=== PATIENT | male | born 1970 | race Caucasian/White ===

== ENCOUNTER 2017-09-28 20:37 | Emergency (ER) | payer MEDICAID ==
[~2017-09-28] VITALS: Ht 182.9 cm; Wt 90.7 kg
[2017-09-28 21:06] VITALS: BP 155/75
[2017-09-28 21:10] VITALS: BP 155/75
--- NOTE | 2017-09-28 21:10 | NUR ---
RETURN BACK TO [facility] IN STABLE CONDITION, MACY NOTED.
--- NOTE | 2017-09-29 01:05 | NUR ---
PATIENT CALLED TO PUT ON BED, NO ANSWER
--- NOTE | 2017-09-29 01:15 | NUR ---
CALLED FOR THE SECOND TIME ,NO RESPONSE
--- NOTE | 2017-09-29 01:26 | NUR ---
CALLED FOR THE THIRD TIME NO ANSWER, PATIENT LEFT WITHOUT BEING SEEN BY DR. TRAMMELL. NO FURTHER CARE PROVIDED FOR PATIENT.
== END 2017-09-29 01:26 | disposition left against medical advice (07) ==
LOC: MED 20:37
DX: R09.81 Nasal congestion (principal); Z53.21 Procedure and treatment not carried out due to patient leaving prior to being seen by health care provider